=== PATIENT | male | born 1960 | race Caucasian/White ===

== ENCOUNTER → 2022-07-08 | Outpatient (CLI) | payer BC | LOC: M CARPUL 14:16 | PROVIDERS: ATTEND Internal Medicine Pulmonary Disease | DX: R06.02 Shortness of breath (principal) ==

== ENCOUNTER → 2022-07-16 | Outpatient (CLI) | payer BC | LOC: M RAD 13:18 | PROVIDERS: ATTEND Internal Medicine Pulmonary Disease | DX: R91.8 Other nonspecific abnormal finding of lung field (principal); R06.02 Shortness of breath ==

== ENCOUNTER → 2022-11-17 | Outpatient (CLI) | payer BC | LOC: M PLAIMG 13:55 | PROVIDERS: ATTEND Internal Medicine Pulmonary Disease | DX: R91.8 Other nonspecific abnormal finding of lung field (principal) ==

== ENCOUNTER → 2023-08-04 | Outpatient (CLI) | payer BC | LOC: M RAD 14:58 | PROVIDERS: ATTEND Internal Medicine Pulmonary Disease | DX: R91.8 Other nonspecific abnormal finding of lung field (principal) ==

== ENCOUNTER → 2024-03-16 | Outpatient (CLI) | payer BC | LOC: M PLAIMG 13:55 | PROVIDERS: ATTEND Internal Medicine Pulmonary Disease | DX: R91.8 Other nonspecific abnormal finding of lung field (principal) ==

== ENCOUNTER → 2024-05-16 | Outpatient (CLI) | payer BC | LOC: M WUC 08:36 | PROVIDERS: ATTEND Student in an Organized Health Care Education/Training Program | DX: M79.672 Pain in left foot (principal) ==

== ENCOUNTER → 2025-03-07 | Outpatient (CLI) | payer BC, MEDICARE | LOC: M WUC 13:36 | PROVIDERS: ATTEND Nurse Practitioner Family | DX: M19.011 Primary osteoarthritis, right shoulder (principal); M25.511 Pain in right shoulder ==